=== PATIENT | female | born 1950 | race Caucasian/White ===

== ENCOUNTER 2020-06-20 16:48 | Inpatient (IN) | payer OTHER ==
[~2020-06-20] VITALS: Ht 170.2 cm; Wt 141.2 kg
[2020-06-20 16:48] VITALS: BP 131/87
[~2020-06-20 16:48] MED LIST: ANTIVERT25 MG PO; CELEXA20 MG PO; DICLOFENAC PO; LISINOPRIL-HCT1 EAC1 PO; VOLTAREN GEL 1100 G2 TOP
[2020-06-20 17:38] LABS: BUN 21 mg/dL (7-18); CALCIUM 8.1 mg/dL (8.5-10.1); CO2 25 mmol/L (21-32); GLUCOSE 141 mg/dL (70-99); POTASSIUM 5.7 mmol/L (3.5-5.1)
[2020-06-20 17:46] LABS: ALBUMIN 3.7 g/dL (3.4-5.0); ALKALINE PHOSPHATASE 143 U/L (46-116); LIPASE 171 U/L (73-393); SGOT 72 U/L (15-37); SGPT 48 U/L (30-65); TOTAL BILIRUBIN 0.9 mg/dL (<0.1-1.0); TOTAL PROTEIN 7.9 g/dL (6.4-8.2)
[2020-06-20 17:52] LABS: ANION GAP < 0 mmol/L (7-16); CHLORIDE 97 mmol/L (98-107)
[2020-06-20 17:53] LABS: SODIUM 111 mmol/L (136-145)
[2020-06-20 17:55] LABS: BE -6.2 mmol/L (-2 to +3)
[2020-06-20 17:58] LABS: PCO2 66.6 mmHg (35.0-45.0); PO2 237.8 mmHg (75.0-100.0); pH 7.175 (7.340-7.450)
[2020-06-20] MEDS ORDERED: MECLIZINE HCL25 M1 PO (18:02)
[2020-06-20 18:03] LABS: HEMATOCRIT 53.7 % (37.0-47.0); HEMOGLOBIN 17.1 gm/dL (12.0-15.0); MCH 30.6 pg (26.0-34.0); MCHC 31.9 g/dL (28.0-37.0); MCV 95.9 fL (80.0-100.0); MPV 8.9 fl. (7.2-11.1); NUCLEATED RBCS 0 /100WBC; PLATELET COUNT* 227 thou/uL (150-400); WBC 12.5 thou/uL (4.0-11.0)
[2020-06-20 19:05] LABS: URINE BILIRUBIN NEGATIVE (Negative); URINE BLOOD NEGATIVE (Negative); URINE CLARITY CLEAR; URINE COLOR YELLOW; URINE GLUCOSE-RANDOM NEGATIVE (Negative); URINE KETONES NEGATIVE (Negative); URINE LEUKOCYTES 1+ (Negative); URINE NITRITE NEGATIVE (Negative); URINE PROTEIN NEGATIVE (Negative); URINE SPECIFIC GRAVITY >= 1.030 (1.005-1.030); URINE UROBILINOGEN 0.2 E.U./dl (0.2-1.0)
[2020-06-20 19:21] LABS: AMP/METHAMP Negative (Negative); BARBITURATES Negative (Negative); BENZODIAZEPINES POSITIVE (Negative); COCAINE Negative (Negative); METHADONE Negative (Negative); OPIATES Negative (Negative); PCP Negative (Negative); THC Negative (Negative)
[2020-06-20 19:22] LABS: SQUAMOUS 0-3 Few /LPF (0-3)
[2020-06-20 19:23] LABS: BACTERIA >30 Many /HPF (None Seen); CASTS None Seen /LPF (None Seen); CRYSTALS None Seen /LPF (None Seen); URINE RBC None Seen /HPF (0-2); URINE WBC >25 Many /HPF (0-5)
[2020-06-20 19:24] LABS: CALCIUM 8.3 mg/dL (8.5-10.1); CREATININE 3.1 mg/dL (0.6-1.3)
[2020-06-20 19:25] LABS: ABSOLUTE EOSINOPHILS 0.1 thou/uL (0.0-0.7); ABSOLUTE LYMPHOCYTES 1.1 thou/uL (0.8-5.3); ABSOLUTE MONOCYTES 0.8 thou/uL (0.0-1.2); ABSOLUTE NEUTROPHILS 10.5 thou/uL (1.6-8.1)
[2020-06-20 19:26] LABS: PLATELET ESTIMATE ADEQUATE
[2020-06-20 19:30] LABS: POTASSIUM 7.6 mmol/L (3.5-5.1)
[2020-06-20 20:37] LABS: ALBUMIN 3.7 g/dL (3.4-5.0); CALCIUM 8.2 mg/dL (8.5-10.1); CREATININE 3.2 mg/dL (0.6-1.3); TOTAL BILIRUBIN 1.1 mg/dL (<0.1-1.0); TOTAL PROTEIN 8.3 g/dL (6.4-8.2)
[2020-06-20 21:24] VITALS: BP 103/76
[2020-06-20 21:46] VITALS: BP 123/83
[2020-06-20 22:01] VITALS: BP 119/83
[2020-06-20 22:30] VITALS: BP 129/86
[2020-06-20 23:31] VITALS: BP 82/55
[2020-06-21] VITALS (22 sets, daily range): BP systolic 92–133; BP diastolic 52–78
[2020-06-21 02:25] LABS: HEMATOCRIT 47.2 % (37.0-47.0); MCH 30.2 pg (26.0-34.0); MCHC 31.7 g/dL (28.0-37.0); MCV 95.3 fL (80.0-100.0); MPV 9.1 fl. (7.2-11.1); RBC 4.96 mil/uL (4.20-5.00); RDW-CV 15.7 % (10.5-14.5); WBC 13.5 thou/uL (4.0-11.0)
[2020-06-21 02:31] LABS: CALCIUM 7.3 mg/dL (8.5-10.1); CREATININE 2.7 mg/dL (0.6-1.3)
--- NOTE | 2020-06-21 06:38 | NUR ---
PT. ADMITTED TO BED 6 ICU AT 2119. SEDATED ON PROPOFOL, ON VENTILATOR. NG AND NEW IN PLACE. PT. DOES GRIMACE/RESPOND TO NOXIOUS STIMULI BUT DID NOT FOLLOW COMMANDS. SEE ADMISSION ASSESSMENT. BILAT SOFT WRIST RESTRAINTS IN PLACE. NO FAMILY PRESENT AT TIME OF ADMISSION, SISTER WAS CALLED BY THIS RN, RANG A FEW TIMES AND THEN STOPPED RINGING WITH NO VOICE MESSAGE OPTION. ALL JEWELRY TAKEN OFF AND PLACED IN BAG IN ROOM. WILL CONTINUE TO MONITOR.
[2020-06-21 08:58] LABS: BE 4.4 mmol/L (-2 to +3); PO2 78.3 mmHg (75.0-100.0)
[2020-06-21 09:01] LABS: PCO2 57.1 mmHg (35.0-45.0)
[2020-06-21 09:06] LABS: CALCIUM 7.5 mg/dL (8.5-10.1); CREATININE 2.3 mg/dL (0.6-1.3)
[2020-06-21 09:07] LABS: POTASSIUM 4.9 mmol/L (3.5-5.1)
[2020-06-21 09:59] LABS: ABSOLUTE BASOPHILS 0.1 thou/uL (0.0-0.2); ABSOLUTE LYMPHOCYTES 1.6 thou/uL (0.8-5.3); ABSOLUTE MONOCYTES 1.7 thou/uL (0.0-1.2); ABSOLUTE NEUTROPHILS 12.3 thou/uL (1.6-8.1); BASOPHILS 0.5 %; EOSINOPHILS 0.1 %; HEMATOCRIT 46.2 % (37.0-47.0); HEMOGLOBIN 15.1 gm/dL (12.0-15.0); LYMPHOCYTES 10.2 %; MCH 30.6 pg (26.0-34.0); MCHC 32.7 g/dL (28.0-37.0); MCV 93.6 fL (80.0-100.0); MONOCYTES 10.9 %; MPV 9.1 fl. (7.2-11.1); NUCLEATED RBCS 0 /100WBC; PLATELET COUNT* 175 thou/uL (150-400); POLYS 78.3 %; RBC 4.94 mil/uL (4.20-5.00); RDW-CV 15.2 % (10.5-14.5); WBC 15.7 thou/uL (4.0-11.0)
[2020-06-21 10:27] LABS: APTT 25.4 Seconds (25.0-31.3)
--- NOTE | 2020-06-21 11:25 | EKG ---
[place] [address] ELECTROCARDIOGRAM REPORT Name: STARR DUMONT Room: [address] ADM IN .R.#: [id number] Admission: 06/20/20 Attend Phys: Grace Flaherty MD Discharge: Date of : 52 Date of Service: 06/20/20 1754 Report #: [id number] THIS REPORT FOR: //name// [facility] ED Test Date: 2020-06-20 Test Time: 17:54:25 Pat Name: STARR DUMONT Department: Room: 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
[2020-06-21 13:18] LABS: CHOLESTEROL 101 mg/dL (<200); HDL CHOLESTEROL 34 mg/dL (>40); LDL CHOLESTEROL 45 mg/dL (<100); SERUM ASSESSMENT Clear; TRIGLYCERIDE 111 mg/dL (<150); VLDL 22 mg/dL (<40)
--- NOTE | 2020-06-21 13:40 | 2DMMODE ---
[place] [address] 2 D/M-MODE ECHOCARDIOGRAM Name: STARR DUMONT Room: [address] IN [facility]#: [id number] Admission: 06/20/20 Attend Phys: Grace Flaherty MD Discharge: Date of : 52 Date of Service: 06/21/20 1339 Report #: [id number] THIS REPORT FOR: cc: Etienne Brizuela MD, Bruce D. MD Liston, Michael J. MD [facility] ~ APPROVED REPORT Study performed: 06/21/2020 09:52:36 EXAM: Comprehensive 2D, Doppler, and color-flow Echocardiogram Patient Location: In-Patient Room #: 006 Status: routine BSA: 2.42 HR: 81 bpm BP: 126/78 mmHg Rhythm: NSR Other Information Study Quality: Good Indications Elevated Troponin altered mental status 2D Dimensions IVSd: 12.44 (7-11mm) LVOT Diam: 19.27 (18-24mm) LVDd: 43.48 mm PWd: 10.30 (7-11mm) Ascending Ao: 33.20 (22-36mm) LVDs: 25.95 (25-40mm) Aortic Root: 29.03 mm Volumes Left Atrial Volume (Systole) LA ESV Index: 27.20 mL/m2 Aortic Valve AoV Peak Camron.: 4.22 m/s AO Peak Gr.: 71.12 mmHg LVOT Max P.22 mmHg AO Mean Gr.: 45.12 mmHg LVOT Mean P.79 mmHg LVOT Max V: 0.90 m/s AO V2 VTI: 89.33 cm LVOT Mean V: 0.63 m/s IVONNE (VTI): 0.68 cm2 LVOT V1 VTI: 20.91 [place] [address] 2 D/M-MODE ECHOCARDIOGRAM Name: STARR DUMONT Room: [address] IN .R.#: [id number] Admission: 06/20/20 Attend Phys: Grace Flaherty MD Discharge: Date of : 52 Date of Service: 06/21/20 1339 Report #: [id number] Mitral Valve E/A Ratio: 1.26 MV Decel. Time: 190.62 ms MV E Max Camron.: 0.97 m/s MV PHT: 55.28 ms MVA (PHT): 3.98 cm2 TDI E/Lateral E': 12.13 E/Medial E': 8.82 Medial E' Camron.: 0.11 m/s Lateral E' Camron.: 0.08 m/s Tricuspid Valve RAP Estimate: 5.00 mmHg TR Peak Gr.: 20.05 mmHg RVSP: 25.00 mmHg PA Pressure: 25.00 mmHg Left Ventricle The left ventricle is normal size. There is normal LV segmental wall motion. Mild concentric left ventricular hypertrophy. Left ventricular systolic function is normal. LVEF is 55-60%. Transmitral Doppler flow pattern suggests pseudonormalization. Right Ventricle The right ventricle is normal size. The right ventricular systolic function is normal. Atria Left atrium is mildly dilated. Right atrium is mildly dilated. Aortic Valve The Aortic valve is sclerotic. Mild aortic regurgitation. Severe aortic stenosis. Mitral Valve There is mitral annular calcification. Trace mitral regurgitation. No evidence of mitral valve stenosis. Tricuspid Valve The tricuspid valve is normal in structure. Trace tricuspid regurgitation. No pulmonary hypertension. Pulmonic Valve The pulmonary valve is normal in structure[place] [address] 2 D/M-MODE ECHOCARDIOGRAM Name: STARR DUMONT Room: [address]#: [id number] Admission: 06/20/20 Attend Phys: Grace Flaherty MD Discharge: Date of : 52 Date of Service: 06/21/20 1339 Report #: [id number] valvular regurgitation. Great Vessels The aortic root is normal in size. IVC is normal in size and collapses >50% with inspiration. Pericardium There is no pericardial effusion. <Conclusion> The left ventricle is normal size. Mild concentric left ventricular hypertrophy. Left ventricular systolic function is normal. LVEF is 55-60%. Transmitral Doppler flow pattern suggests pseudonormalization. There is normal LV segmental wall motion. Left atrium is mildly dilated. Right atrium is mildly dilated. The Aortic valve is sclerotic. Mild aortic regurgitation. Severe aortic stenosis. There is mitral annular calcification. Trace mitral regurgitation. Trace tricuspid regurgitation. No pulmonary hypertension. <ELECTRONICALLY SIGNED> By: Maurilio Zamora MD, FACC 06/21/20 1339 1339 1339 Maurilio Zamora MD, FACC /INF
--- NOTE | 2020-06-21 13:53 | NUR ---
ICU rounds: Intubated and sedated, fio2 65%. Elevated K. Correcting labs. UTI. Nephro consulted. CM spoke with Pt's sister, Lay, on the phone [phone]. Per sister, Pt resides at home with their other sister, Trinity, Trinity is MR and Pt helps manage Pt's monies and provides cares as needed. Lay resides across the parking lot. Pt is normally independent, no DME. No hx of HH or SNF. CM following for dc needs.
--- NOTE | 2020-06-21 16:13 | EKG ---
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1950 Requested By: Kristie Delgado Order Number: [id number] Reading MD: Maurilio Zamora Measurements Intervals [place] Rate: 91 P: 0 LA: 123 QRS: -22 QRSD: 82 T: 102 QT: 366 QTc: 451 Interpretive Statements Sinus rhythm Left anterior fascicular block borderline repolarization abnormality Compared to ECG 06/20/2020 17:54:25 No significant changes Electronically Signed On 06-21-2020 16:13:17 CDT by Maurilio Zamora [email or web address] <ELECTRONICALLY SIGNED> By: Maurilio Zamora MD, [facility] 06/21/20 1613 1107 1107 Maurilio Zamora MD, [facility] /EPI
[2020-06-21 21:06] LABS: COMPLEMENT-C4 25 mg/dL (12-38)
[2020-06-22] VITALS (22 sets, daily range): BP systolic 89–139; BP diastolic 40–84
[2020-06-22 02:06] LABS: HEPATITIS B SURFACE AG Negative (Negative)
[2020-06-22 02:38] LABS: ABSOLUTE BASOPHILS 0.1 thou/uL (0.0-0.2); ABSOLUTE LYMPHOCYTES 0.4 thou/uL (0.8-5.3); ABSOLUTE MONOCYTES 0.8 thou/uL (0.0-1.2); BASOPHILS 0.3 %; HEMATOCRIT 46.7 % (37.0-47.0); HEMOGLOBIN 15.4 gm/dL (12.0-15.0); LYMPHOCYTES 2.3 %; MCH 30.9 pg (26.0-34.0); MCHC 32.9 g/dL (28.0-37.0); MCV 93.8 fL (80.0-100.0); MONOCYTES 3.9 %; MPV 9.3 fl. (7.2-11.1); NUCLEATED RBCS 0 /100WBC; PLATELET COUNT* 155 thou/uL (150-400); POLYS 93.5 %; RBC 4.98 mil/uL (4.20-5.00); RDW-CV 15.1 % (10.5-14.5); WBC 19.3 thou/uL (4.0-11.0)
[2020-06-22 02:43] LABS: PHOSPHORUS* 1.7 mg/dL (2.5-4.9); POTASSIUM 4.6 mmol/L (3.5-5.1)
[2020-06-22 02:52] LABS: CALCIUM 7.5 mg/dL (8.5-10.1); CREATININE 1.8 mg/dL (0.6-1.3)
[2020-06-22 02:57] LABS: ALBUMIN 2.6 g/dL (3.4-5.0); CALCIUM 7.7 mg/dL (8.5-10.1); CREATININE 1.8 mg/dL (0.6-1.3); MAGNESIUM 1.9 mg/dL (1.8-2.4); POTASSIUM 4.5 mmol/L (3.5-5.1); TOTAL BILIRUBIN 0.7 mg/dL (<0.1-1.0); TOTAL PROTEIN 6.8 g/dL (6.4-8.2)
[2020-06-22 08:28] LABS: BE 0 mmol/L (-2 to +3); PO2 79.8 mmHg (75.0-100.0); pH 7.386 (7.340-7.450)
--- NOTE | 2020-06-22 12:14 | NUR ---
ICU rounds: Possible extubation and EGD planned for today. Bipap will be on standby if needed. Possible heart cath planned for Saturday. Therapies will need to be ordered to help determine any dc planning needs. and Nguyễn currently in room conducting weaning trial. CM to continue to follow for safe dc planning.
--- NOTE | 2020-06-22 12:40 | NUR ---
EXTUBATED 5 AT 1224. PT AOX4. ETT AND NG D/C AT THE SAME TIME, 1224. EXTUBATED TO 4LNC. BIPAP ON STANDBY.
[2020-06-22 15:08] LABS: URINE PROTEIN (MG/DL) 33.7 mg/dL (Not Estab.)
[2020-06-22 15:08] LABS: GLOBULIN TOTAL 2.8 g/dL (2.2-3.9); M-SPIKE Not Observed g/dL (Not Observed)
--- NOTE | 2020-06-22 18:22 | NUR ---
pt passed bedside swallow. no signs of aspiration noted.
[2020-06-23] VITALS (14 sets, daily range): BP systolic 111–144; BP diastolic 64–87
--- NOTE | 2020-06-23 06:34 | NUR ---
PT. PROGRESSING TOWARDS GOALS. ALERT AND ORIENTED BUT FORGETFUL AT TIMES. VERY PLEASANT. HEPARIN GTT REMAINS RUNNING AT 1523 UNITS/HR. PT. HAS DRY COUGH, VERY LITTLE SPUTUM. ABLE TO USE SUCTION INDEPENDENTLY, SUCTION WITHIN REACH AT BEDSIDE. PT. IS ON BIPAP AT THIS TIME, TOLERATING WELL. WILL CONTINUE TO MONITOR.
--- NOTE | 2020-06-23 09:19 | NUR ---
ICU Rounds: Patient extubated yesterday and placed on bipap at 40%. Patients sats are WNL and is now on NC for O2 support. Steroids and abx continued. Per , patient is stable to transfer to [facility] today. Therapies ordered today to help determine plan of care for patient at mo. May need HH at mo. CM to continue to follow
[2020-06-23 10:01] LABS: CALCIUM 7.7 mg/dL (8.5-10.1); CREATININE 1.3 mg/dL (0.6-1.3); POTASSIUM 5.5 mmol/L (3.5-5.1)
[2020-06-23 10:02] LABS: TROPONIN-I LEVEL 5.23 ng/mL (<0.06)
--- NOTE | 2020-06-23 11:30 | CON ---
[address] [address] CONSULTATION Name: STARR DUMONT Room: [address] IN M.R.#: [id number] Admission: 06/20/20 Attend Phys: Grace Flaherty MD Discharge: Date of : 52 Report #: [id number] THIS REPORT FOR: cc: Etienne Brizuela MD, Bruce D. MD Pervez, Adeel MD ~ DOC #: [id number] Obinna Adrian MD CONSULTATION REQUESTED BY: Grace Flaherty MD INDICATION FOR CONSULTATION: Ventilator management. HISTORY OF PRESENT ILLNESS: A 70-year-old female, information regarding past medical history is limited as the patient is already endotracheally intubated. It does appear to me that the patient has had COPD as well as obstructive sleep apnea and hypertension. It is not known to me as to whether these have been previously diagnosed. The patient is now admitted with altered mental status. Apparently, she does take Xanax at home and there were bottles of Xanax around her when she was found; however, there is no definite indication that the patient had overdosed on Xanax. She did have altered mental status, requiring endotracheal intubation. The patient is noted to be in acute renal failure. She also has a significantly deranged electrolytes. Her sodium is down to 111 initially. She also has rhabdomyolysis. Currently, she is on the ventilator with 65% FiO2 and 5 of PEEP. On my exam, she is actively bronchospastic. She does have a mild elevation in troponin I consistent with a myocardial infarction at 19.23 as well. The patient is making some urine. She is currently hemodynamically stable. The patient is on the ventilator and therefore is unable to provide a further history or review of systems. PAST MEDICAL HISTORY: The patient does appear to have COPD as well as obstructive sleep apnea, it is not known to me as to whether the patient in fact was diagnosed with these in the past or not. Morbid obesity, body mass index of 48, anxiety and/or depression, does take antidepressants as well as Xanax at home, hypertension and migraines. SOCIAL HISTORY: Unobtainable. CURRENT MEDICATIONS: List in [facility] reviewed. HOME MEDICATIONS: The list in [facility] reviewed. Unknown as to whether this list is current. ALLERGIES: [place] [address] CONSULTATION Name: STARR DUMONT Room: [address]#: [id number] Admission: 06/20/20 Attend Phys: Grace Flaherty MD Discharge: Date of : 52 Report #: [id number] FAMILY HISTORY: Unobtainable. PHYSICAL EXAMINATION: GENERAL: She is sedated with propofol at 20. VITAL SIGNS: Has a pulse of 90 and a blood pressure of 122/71. She is saturating 95% and is not breathing over the ventilator, which is set at 16. She had a fever up to 38.2 last night, temperature is 37.7 now, is on a tidal volume of 500, AC rate 16, PEEP is 5, 65% FiO2. HEENT: Head is normocephalic and atraumatic. Pupils are equal and reactive. There is an endotracheal tube in good position. NECK: Does not show raised JVP, asymmetry, mass or lymph nodes. CHEST: Symmetrical expansion on inspection and palpation. On auscultation, breath sounds are decreased. Expirations are prolonged. There are expiratory and some inspiratory wheezes heard bilaterally. HEART: Regular. There is no murmur. ABDOMEN: Soft and nontender. LOWER EXTREMITIES: Show no edema and no calf tenderness. SKIN: Dry and intact. NEUROLOGIC: Moves all extremities. No focal deficits identified. Since she is on sedation primarily, she is moving extremities to pain only at this time. LABORATORY DATA: The patient's chest x-ray was reviewed and compared with the patient's previous chest x-rays, there is an opacity at the left lung base consistent with an infiltrate, atelectasis and pleural effusion can also lead to this picture. There are some chronic changes. Endotracheal tube was in good position. The patient's lab work is in [facility] reviewed. Arterial blood gases in [facility] reviewed. ASSESSMENT AND PLAN: 1. Acute on chronic hypercarbic respiratory failure. I repeated an arterial blood gas, the pH is now normalized but pCO2 is still elevated. This is consistent with a chronic component to respiratory failure in addition to acute. At this time considering morbid obesity and high FiO2 needs, I will go ahead and increase the PEEP to 8. We will try to bring down FiO2; if we are able to bring down FiO2, then we will cut back on PEEP later. Note that her CPK is significantly elevated; therefore, I will try to take her off propofol soon. I want to try to avoid giving her benzodiazepines if possible. Therefore, I went ahead and ordered Precedex and I also ordered p.r.n. fentanyl. We will see if we are able to take her off propofol soon. If not, we may need to cautiously give her some benzodiazepines. I will follow. The patient currently only has peripheral access. She likely will need more IV access. She will be high risk for placing a central line at this time and until we are confident that her renal failure is improving, we would hold off on a PICC; therefore, I did not request either at this time. If her creatinine is improving, [place] [address] CONSULTATION Name: STARR DUMONT Room: [address] IN [facility].#: [id number] Admission: 06/20/20 Attend Phys: Grace Flaherty MD Discharge: Date of : 52 Report #: [id number] Nephrology regarding placing a PICC tomorrow; if she declines, then I will request placement of a central line. We will reassess with arterial blood gases tomorrow. 2. Altered mental status likely secondary to metabolic encephalopathy, full etiology not defined at this time. CT head did not show any acute abnormalities. 3. Chronic obstructive pulmonary disease exacerbation. Arterial blood gases are consistent with previous COPD. The patient also was actively bronchospastic on my exam. I would like to limit use of steroids considering that she has an acute myocardial infarction, but due to bronchospasm, I feel that I do need to give her at least two doses of Solu-Medrol. We will subsequently reassess and it is likely that the patient will need more steroids, went ahead and ordered a DuoNeb as well. 4. Pulmonary infiltrates/left lower lobe opacity. See discussion regarding this opacity as above. The patient is on ceftriaxone. Cultures are pending. I sent off more cultures and serologies. We will broaden antibiotic coverage by adding doxycycline. 5. Obstructive sleep apnea. History is also consistent with this. The patient likely will need a CPAP or BiPAP once extubated. Unknown as to whether the patient has been previously diagnosed. 6. Acute renal failure with hyponatremia and hyperkalemia. The Nephrology service is on the case. 7. Acute myocardial infarction. The Cardiology service is on the case. The patient is now on an IV heparin infusion. Echocardiogram is pending. I ordered a D-dimer; in case it comes back elevated, I will do venous Dopplers as well. 8. Mild hyperglycemia, likely to worsen with steroids. Therefore, I went ahead and ordered an insulin sliding scale. 9. Gastrointestinal prophylaxis, Protonix. 10. The patient is critically ill at this time. Total time spent providing critical care to this patient today exceeds 46 minutes. MD FRANCISCO JAVIER Sequeira/KAT/ANDRAE <ELECTRONICALLY SIGNED> By: Obinna Adrian MD 06/23/20 1130 1015 2049Akristine Adrian MD /alfredo
--- NOTE | 2020-06-23 12:51 | EKG ---
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 06/23/20 1251 5 5 Aubrey Coello MD, [facility] /EPI
--- NOTE | 2020-06-23 15:15 | NUR ---
REPORT GIVEN TO ROWENA WALKER ON TELE. ROWENA WALKER WILL BE TAKING OVER PATIENT CARE. THE PT IS TRANSFERING TO [facility].
--- NOTE | 2020-06-23 15:23 | NUR ---
POSS DTI NOTED ON PTS BUTTOCKS. WOUND RN VAZQUEZ. PT REFUSED TO ALLOW RN TO TAKE A PHOTO OF THE AREA FOR HER CHART.
--- NOTE | 2020-06-23 16:02 | EKG ---
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1950 Requested By: Kristie Delgado Order Number: [id number] Reading MD: Maurilio Zamora Measurements Intervals [place] Rate: 84 P: 0 OR: 132 QRS: 10 QRSD: 84 T: 66 QT: 391 QTc: 463 Interpretive Statements Sinus rhythm Borderline ST depression, diffuse leads Compared to ECG 06/23/2020 09:26:10 ST (T wave) deviation now present Early repolarization no longer present Electronically Signed On 06-23-2020 16:02:26 CDT by Maurilio Zamora [email or web address] <ELECTRONICALLY SIGNED> By: Maurilio Zamora MD, FACC 06/23/20 1602 1339 1339 Maurilio Zamora MD, FAC /EPI
--- NOTE | 2020-06-23 16:10 | NUR ---
ASSUMED PT CARE AT 1530. PT IS A&OX4 AND SLOW TO RESPOND AT TIMES. ASSESSMENT COMPLETED AND THIS DRAFTER GEOLOGICAL AGREES WITH ASSESSMENT FROM ICU NURSE. CHART REVIEWED.MEDICATIONS REVIEWED. SAFETY MEASURES IN PLACE. PT UP WITH ASSIST X1. PT ORIENTED TO ROOM AND VERBALIZES UNDERSTANDING OF SAFETY MEASURES. DENIES ANY CONCERNS AT THIS TIME.
[2020-06-24] VITALS (16 sets, daily range): BP systolic 116–155; BP diastolic 66–88
[2020-06-24 02:06] LABS: MYCOPLASMA PNEUMONIA IgG 224 U/mL (0-99); MYCOPLASMA PNEUMONIA IgM <770 U/mL (0-769)
[2020-06-24 04:03] LABS: ABSOLUTE LYMPHOCYTES 0.9 thou/uL (0.8-5.3); ABSOLUTE MONOCYTES 0.7 thou/uL (0.0-1.2); ABSOLUTE NEUTROPHILS 10.6 thou/uL (1.6-8.1); BASOPHILS 0.1 %; HEMATOCRIT 44.3 % (37.0-47.0); HEMOGLOBIN 14.2 gm/dL (12.0-15.0); LYMPHOCYTES 7.1 %; MCH 30.1 pg (26.0-34.0); MCV 93.9 fL (80.0-100.0); MONOCYTES 6.1 %; MPV 9.1 fl. (7.2-11.1); NUCLEATED RBCS 0 /100WBC; PLATELET COUNT* 192 thou/uL (150-400); POLYS 86.7 %; RBC 4.72 mil/uL (4.20-5.00); RDW-CV 15.7 % (10.5-14.5); WBC 12.2 thou/uL (4.0-11.0)
[2020-06-24 04:19] LABS: ALBUMIN 2.5 g/dL (3.4-5.0); CALCIUM 7.9 mg/dL (8.5-10.1); CREATININE 1.1 mg/dL (0.6-1.3); MAGNESIUM 2.4 mg/dL (1.8-2.4); TOTAL BILIRUBIN 0.8 mg/dL (<0.1-1.0)
[2020-06-24 04:56] LABS: POTASSIUM 3.6 mmol/L (3.5-5.1)
--- NOTE | 2020-06-24 06:48 | NUR ---
ASSUMED CARE OF PT AFTER REPORT AT 1930. PT A&OX4. VSS. PHYSICAL ASSESSMENT COMPLETED AND CHARTED. PT ON O2 AT 3.5L NC/BIPAP ATHS. PT TRACING SR ON TELE. PT UPSTANDBY TO RESTROOM. PT DENIES ANY PAIN. PT INSTRUCTED ON NPO POST MIDNIGHT FOR POSSIBLE CARDIAC CATH. COMMUNICATES UNDERSTANDING. MAINTAINED ON HEPRAIN DRIP-TITRATED PER PROTOCOL. SPUTUM SENT TO LAB. FALL PRECAUTIONS IN PLACE. CALL LIGHT WITHIN REACH.
--- NOTE | 2020-06-24 13:41 | NUR ---
Anticipate dc tomorrow, pending therapies and med changes. If Pt needs HH at dc fax referral, H&P, covid test, face sheet and orders to [facility] p:[phone]
--- NOTE | 2020-06-24 15:25 | CARD ---
[address] [address] CARDIAC CATH REPORT Name: STARR DUMONT Room: [address] IN [facility]#: [id number] Admission: 06/20/20 Attend Phys: Grace Flaherty MD Discharge: Date of : 52 Report #: [id number] THIS REPORT FOR: cc: Etienne Brizuela MD, Bruce D. MD Blick,Aubrey Shine MD [facility] ~ ADDENDUM APPROVED REPORT Study performed: 06/24/2020 08:57:17 Patient Details Patient Status: In-Patient Room #: The patient is a 70 year-old female Event Personnel Jerome Nichols RTR Monitor, Joshua Gonsalez McKeel, Tiffany RN RN, Aubrey Coello Monotype Setter Procedures Performed Left Heart Cath w/or w/o Coronaries [id number] [facility] Supravalvular Aortography Injection [id number] ISVA Hemostasis with Hemoband Hemostasis w/ Mynx Indication Abnormal ECG, Non-STEMI , Dyspnea, Valvular heart disease Risk Factors Obesity, Tobacco History () Admission/Lab Medications/Medications given during procedure Midazolam (Versed) IV 2 mg, Lidocaine Subcut 4 ml, Nitroglycerin IA 200 mcg, Verapamil IA 2.5 mg, Fentanyl IV 25 mcg, Lidocaine Subcut 20 ml Procedure Narrative The patient was brought electively to the Cardiac Catheterization Laboratory and was prepped and draped in a sterile manner. The right femoral was infiltrated with 2% Lidocaine subcutaneous anesthesia. A Elsie 6 FR sheath was inserted into the right femoral artery. Coronary angiography was performed using coronary diagnostic catheters. The right coronary system was accessed and visualized with a Diagnostic JR4 6Fr catheter. The left coronary system was accessed and visualized with a Diagnostic JL4 6Fr catheter. [place] [address] CARDIAC CATH REPORT Name: STARR DUMONT Room: [address] IN [facility].#: [id number] Admission: 06/20/20 Attend Phys: Grace Flaherty MD Discharge: Date of : 52 Report #: [id number] was accessed and visualized with a Diagnostic Pigtail 6Fr catheter. Left ventricular/Aortic Valve gradient assessed via catheter pullback. Left ventriculogram was performed in PARRA projection. An aortogram of the ascending aorta was performed. Closure device was deployed with a 6 Fr Mynx. The patient tolerated the procedure well and there were no complications associated with the procedure. There was no hematoma. Attempted procedure from the right radial artery. After placing a 6 wolof sheath, arterial loop was noted in the brachial artery. It was decided to proceed from the right femoral artery. Radial sheath was removed at the end of the procedure and a vascband was placed. Aortic root injection was performed using a pigtail catheter. Aortic valve was crossed with a straight glide wire through a JR4 catheter, and the catheter was exchanged over a wire for a pigtail catheter. Intraoperative Conscious Sedation Sedation start time: 09 Case end Time: 1006 Fentanyl 25 mcg Versed 2 mg Fluoro Time: 9.4 minutes Dose: DAP [id number] cGycm2 3897.87 mGy Contrast Type and Amount: Omnipaque 190 ml Coronary Angiography The patient's coronary anatomy is left dominant. [place] Artery Percent Stenosis Left Main: 0 % Prox LAD: 0 % Mid/Distal LAD: 0 % Circumflex: 0 % RCA: 0 % Ramus: % Left Ventriculography The left ventricular ejection fraction is estimated to be 60-65%. Left ventricular wall motion abnormalities are not present. There is no mitral insufficiency. Mild aortic insuffeciency noted on aortic root injection. Hemodynamics The aortic pressure is 120/65 mmHg with a mean of 87 mmHg. The left ventricular pressure is 199/17 mmHg with a mean of mmHg. The left ventricular end diastolic pressure is 28 mmHg. Pullback from the left ventricle to the aorta revealed a 70 mm gradient across the aortic [place] [address] CARDIAC CATH REPORT Name: STARR DUMONT Room: [address] IN M.R.#: [id number] Admission: 06/20/20 Attend Phys: Grace Flaherty MD Discharge: Date of : 52 Report #: [id number] 1. normal coronary arteries 2. LVEF 60-65% 3. Severe aortic stenosis with a pull back gradient of 70 mm Hg Recommendations consider referral for a TAVR procedure. <ELECTRONICALLY SIGNED> By: Aubrey Coello MD, [facility] 06/24/20 1525 1525 1525Aubrey Coello MD, [facility] /INF
--- NOTE | 2020-06-24 15:59 | NUR ---
WOUND NURSE: PATIENT SEEN TO ADDRESS [place] NONBLACHEABLE TISSUE OVER CO[place]YX. TISSUE IS CURRENTLY INTACT, BUT THIN AND FRIABLE. PATIENT ABLE TO REPOSITION SELF. SUSPECT THIS MAY HAVE BEEN PRESENT PRIOR TO ADMIT TO HOSP. NURSE HAD REPORTED PATIENT WAS FOUND DOWN IN HER HOME AND TRANSPORTED VIA AMBULANCE. CURENTLY PRESENTS SUSPECTED DEEP TISSUE INJURY. PATIENT INSTRUCTED TO USE WAFFLE CUSHION WHEN UP IN CHAIR. TO LIMIT SITTING TO 1 HOUR INTERVALS PREFERRED. REPOSITION WHEN IN BED TO SIDE TO SIDE. PATIENT AGREES TO THIS. RECOMMEND USE OF CLEAR AID MOISTURE BARRIER OINTMENT Q SHIFT NURSING INTERVENTION.
--- NOTE | 2020-06-24 19:54 | NUR ---
ASSUMED PT CARE AT 0730.PT TO HAVE CARDIAC CATH TODAY. ASSESSMENT COMPLETED. PT RETURNED FROM SPOOL HAULER, NO STINTS PLACED. POST CARDIAC CATH ASSESSMENT COMPLETED PER PROTOCOL. RADSTAT TO R RADIAL WRIST REMOVED AT 1227PM AFTER THE 12ML REMOVED AT 2ML Q15MIN. VS MONITORED AND CHARTED PER PROTOCOL. BOTH DRESSINGS TO R RADIAL WRIST AND R GROIN ARE DRY AND INTACT WITH NO DRAINAGE. PT COMPLIANT WITH IMMOBILIZATION. MEDS ADMINISTERED ORDERED. PT VOICES NO CONCERNS AT THIS TIME. PT VERBALIZES UNDERSTANDING OF SAFETY MEASURES.
[2020-06-25] VITALS (7 sets, daily range): BP systolic 116–174; BP diastolic 56–90
--- NOTE | 2020-06-25 04:48 | NUR ---
ASSUMED CARE OF PT AFTER REPORT AT 1930. PT A&OX4. VSS. PHYSICAL ASSESSMENT COMPLETED AND CHARTED. PT ON O2 AT 2LNC/BIPAP AT HS. PT TRACING SR ON TELE. PT UPSTANDBY TO RESTROOM. PT COMPLAINED OF RIGHT HIP & RIGHT KNEE PAIN-MED GIVEN PER APR. FALL PRECAUTIONS IN PLACE. CALL LIGHT WITHIN REACH.
[2020-06-25] MEDS ORDERED: IPRAT-ALBUT 0.5-3 ML INH (07:55)
[2020-06-25] MEDS ORDERED: PULMICORT0.5 MG/2 M INH (07:55)
[2020-06-25] MEDS ORDERED: DOXYCYCLINE 10100 MG PO (07:55)
[2020-06-25] MEDS ORDERED: COREG6.25 MG PO (07:55)
[2020-06-25] MEDS ORDERED: BAYER CHEWABLE81 MG PO (07:55)
[2020-06-25] MEDS ORDERED: SYNTHROID175 MCG PO (07:55)
[2020-06-25] MEDS ORDERED: LIPITOR 40 MG T40 M1 PO (07:55)
[2020-06-25] MEDS ORDERED: PREDNISONE 10 M10 M1 PO (07:55)
[2020-06-25] MEDS ORDERED: NITROGLYCERIN0.4 MG SUBLING (07:55)
[2020-06-25] MEDS ORDERED: GLIPIZIDE5 MG PO (07:59)
[2020-06-25] MEDS ORDERED: GLUCOSE TEST S1 EACH SUBQ (07:59)
--- NOTE | 2020-06-25 17:20 | NUR ---
PT DISCHARGED HOME WITH O2 SISTER CAME TO PICK HER UP NO CONCERNS AT THIS TIME BESIDES NOT PICKING UP MEDS UNTIL TOMORROW "I'M TIRED" EDUCATION GIVEN
--- NOTE | 2020-06-25 17:23 | NUR ---
PT TO D/C HOME TODAY WITH HH. CM FAXED PT'S CLINCIAL INFO TO [facility]. PER R.T. PT NEEDS 2L O2 @ REST AND 3L O2 WITH ACTIVITY. CM ARRANGED HOME OXYGEN WITH JACKIE. TANK DELIVERED TO PT. CM WILL REMAIN AVAILABLE TO ASSIST AND FOLLOW NEEDED. [facility] PHONE: [phone] FAX: [phone]
== END 2020-06-25 17:21 | disposition home health service (06) | DRG 871 ==
LOC: M.ERS 16:48 → M.ICU 18:23 → M.TBA-ER 18:23 → M.ICU 20:10 → M.2W 06-23 15:37
PROVIDERS: Emergency Medicine; Internal Medicine Critical Care Medicine; Internal Medicine Nephrology; Registered Nurse; ADMIT Family Medicine; ATTEND Family Medicine
PROC: 0BH17EZ Insertion of Endotracheal Airway into Trachea, Via Natural or Artificial Opening (ICD-10-PCS; principal; 2020-06-20)
PROC: 5A1945Z Respiratory Ventilation, 24-96 Consecutive Hours (ICD-10-PCS; principal; 2020-06-20)
PROC: 5A09357 Assistance with Respiratory Ventilation, Less than 24 Consecutive Hours, Continuous Positive Airway Pressure (ICD-10-PCS; 2020-06-23)
PROC: 4A023N7 Measurement of Cardiac Sampling and Pressure, Left Heart, Percutaneous Approach (ICD-10-PCS; 2020-06-24)
PROC: 5A09357 Assistance with Respiratory Ventilation, Less than 24 Consecutive Hours, Continuous Positive Airway Pressure (ICD-10-PCS; 2020-06-24)
PROC: B2151ZZ Fluoroscopy of Left Heart using Low Osmolar Contrast (ICD-10-PCS; 2020-06-24)
PROC: B4101ZZ Fluoroscopy of Abdominal Aorta using Low Osmolar Contrast (ICD-10-PCS; 2020-06-24)
PROC: B2111ZZ Fluoroscopy of Multiple Coronary Arteries using Low Osmolar Contrast (ICD-10-PCS; 2020-06-24)
DX: A41.9 Sepsis, unspecified organism (principal); G93.41 Metabolic encephalopathy; N17.0 Acute kidney failure with tubular necrosis; I21.4 Non-ST elevation (NSTEMI) myocardial infarction; J15.7 Pneumonia due to Mycoplasma pneumoniae; J96.22 Acute and chronic respiratory failure with hypercapnia; R65.21 Severe sepsis with septic shock; J96.91 Respiratory failure, unspecified with hypoxia; E87.1 Hypo-osmolality and hyponatremia; Z68.42 Body mass index [BMI] 45.0-49.9, adult; J44.1 Chronic obstructive pulmonary disease with (acute) exacerbation; J44.0 Chronic obstructive pulmonary disease with (acute) lower respiratory infection; N39.0 Urinary tract infection, site not specified; E87.5 Hyperkalemia; E66.01 Morbid (severe) obesity due to excess calories; E03.9 Hypothyroidism, unspecified; G43.909 Migraine, unspecified, not intractable, without status migrainosus; I10 Essential (primary) hypertension; G47.33 Obstructive sleep apnea (adult) (pediatric); F41.9 Anxiety disorder, unspecified; I25.10 Atherosclerotic heart disease of native coronary artery without angina pectoris; I35.0 Nonrheumatic aortic (valve) stenosis; R73.9 Hyperglycemia, unspecified; F32.9 Major depressive disorder, single episode, unspecified; I95.9 Hypotension, unspecified; Z20.822 Contact with and (suspected) exposure to COVID-19; Z79.899 Other long term (current) drug therapy